=== PATIENT | male | born 1950 ===

== ENCOUNTER 2025-08-11 11:45 | Outpatient (CLI) | payer MEDICARE, OTHER | END 2025-08-11 11:46 | disposition home or self-care (01) | LOC: PET 11:45 | PROVIDERS: ATTEND Internal Medicine Hematology & Oncology | DX: C61 Malignant neoplasm of prostate (principal); Z79.899 Other long term (current) drug therapy; M89.9 Disorder of bone, unspecified | CPT/HCPCS: 78815; A9595 ==